=== PATIENT | female | born 1960 | race Caucasian/White ===

== ENCOUNTER → 2021-06-10 09:53 | Outpatient (BNVA) | payer MEDICARE, MEDICAID, SELFPAY | PROVIDERS: PCP Internal Medicine; Visit Provider Advanced Practice Midwife | DX: Z13.89 Encounter for screening for other disorder (principal) ==

== ENCOUNTER 2022-06-16 13:44 | Emergency (ER) | payer MEDICARE, MEDICAID, SELFPAY ==
--- NOTE | ~2022-06-16 | XR_ITS ---
EXAMINATION: XR TIBIA AND FIBULA, LEFT CLINICAL INFORMATION: Left leg pain. COMPARISON: None available. TECHNIQUE: AP and lateral views of the left tibia and fibula were obtained. FINDINGS: The proximal tibia and fibula are intact. The left knee is unremarkable. There is no joint effusion. The soft tissues are unremarkable. XR/XR tibia fibula LT 2V IMPRESSION: No abnormality in the proximal tibia and fibula. Please refer to the report from left ankle radiographs from today for more detailed findings.
--- NOTE | ~2022-06-16 | XR_ITS ---
CR X-RAY FOOT AND ANKLE LEFT CLINICAL HISTORY: Left foot and ankle pain status post trauma. TECHNIQUE: 3 views of the left ankle and 4 views of the left foot were obtained. COMPARISON: None. FINDINGS: There are acute, mildly displaced fractures of the medial and lateral malleoli. The tibiotalar joint space appears intact. The tarsal bones are normally aligned. The metatarsals and phalanges are intact. Moderate soft tissue swelling is seen. XR/XR foot LT 2V IMPRESSION: Acute, mildly displaced medial and lateral malleoli fractures with moderate soft tissue swelling.
--- NOTE | ~2022-06-16 | XR_ITS ---
CR X-RAY FOOT AND ANKLE LEFT CLINICAL HISTORY: Left foot and ankle pain status post trauma. TECHNIQUE: 3 views of the left ankle and 4 views of the left foot were obtained. COMPARISON: None. FINDINGS: There are acute, mildly displaced fractures of the medial and lateral malleoli. The tibiotalar joint space appears intact. The tarsal bones are normally aligned. The metatarsals and phalanges are intact. Moderate soft tissue swelling is seen. XR/XR ankle LT 2V IMPRESSION: Acute, mildly displaced medial and lateral malleoli fractures with moderate soft tissue swelling.
[2022-06-16 13:49] VITALS: BP 125/78; PULSE 96; O2SAT 96
[2022-06-16 13:51] VITALS: BP 106/58; PULSE 93; RESP 18; TEMP 36.8; O2SAT 98; BMI 30.2
--- NOTE | 2022-06-16 14:03 | ED.GENADULT ---
HPI - General Adult General Chief complaint: Extremity Injury, Lower Stated complaint: L foot pain per EMS Time Seen by Provider: 06/16/22 13:46 Source: patient Mode of arrival: ambulatory Limitations: no limitations History of Present Illness HPI narrative: 61-year-old female with a history of seizure disorder, hypertension, prior TBI who presents the ER with complaints of left foot and ankle pain after a slip and fall in the shower yesterday. Patient reports inversion injury of the left foot and ankle. Since then pain which is worsened with weight-bearing. No reports of head injury or loss of consciousness. Patient reports pain in the foot and ankle. No associated weakness, numbness or tingling. No AC therapy use. Related Data Home Medications Medication Instructions Recorded Confirmed albuterol sulfate 90 mcg/actuation 1 puff PO Q6H PRN wheezing 06/10/21 aerosol inhaler (ProAir HFA) fluoxetine 40 mg capsule 40 mg PO DAILY 06/10/21 hydrochlorothiazide 25 mg tablet 25 mg PO DAILY 06/10/21 levetiracetam 500 mg tablet 500 mg PO Q12H 06/10/21 lisinopril 5 mg tablet 5 mg PO DAILY 06/10/21 loratadine 10 mg tablet 10 mg PO DAILY 06/10/21 melatonin 3 mg tablet 3 mg PO BEDTIME 06/10/21 omeprazole 20 mg capsule,delayed 20 mg PO DAILY 06/10/21 release phenytoin sodium extended 100 mg 100 mg PO BEDTIME 06/10/21 capsule potassium chloride 10 mEq 10 meq PO DAILY 06/10/21 tablet,extended release simvastatin 20 mg tablet 20 mg PO BEDTIME 06/10/21 trazodone 50 mg tablet 50 mg PO BEDTIME 06/10/21 Previous Rx's Medication Instructions Recorded oxycodone 5 mg tablet 5 mg PO Q6H PRN pain #10 tabs 06/16/22 Allergies Allergy/AdvReac Type Severity Reaction Status Date / Time No Known Allergies Allergy Verified 06/10/21 10:06 Review of Systems Review of Systems: Yes all other systems are reviewed and are negative Constitutional: Constitutional: Reports no additional constitutional complaints, Denies body ache(s), Denies chills, Denies fever(s), Denies headache(s) and Denies weakness Eyes: Eyes: Reports no additional eye complaints and Denies change in vision ENT: Reports system reviewed and no additional complaints, except as documented, Denies dizziness, Denies headache(s), Denies nasal congestion, Denies nasal discharge and Denies neck pain Cardiovascular: Cardiovascular: Reports no additional cardiovascular complaints, Denies chest pain, Denies leg edema and Denies dyspnea Respiratory: Respiratory: Reports no additional respiratory complaints, Denies cough and Denies dyspnea Gastrointestinal: Gastrointestinal: Reports no additional gastrointestinal complaints, Denies abdominal pain, Denies diarrhea, Denies nausea and Denies vomiting Genitourinary: Genitourinary: Reports no additional female genitourinary complaints and Denies urinary incontinence Musculoskeletal: Musculoskeletal: Reports no additional musculoskeletal complaints, Denies back pain, Reports arthralgias, Reports joint swelling, Denies neck pain, Denies numbness and Denies tingling Integumentary/Breasts: Skin/Breast: Reports system reviewed and no additional complaints, except as docu and Denies rash Neurologic: Reports system reviewed and no additional complaints, except as documented, Denies dizziness, Denies headache(s), Denies numbness, Denies tingling and Denies weakness PMF Past Medical History Attestation statement: The following information was validated with the patient. Source: old records reviewed and nursing notes reviewed Medical History Seizure Stroke Surgical History History of cranial surgery Social History Social History Advance Directives: No Advance Directives Information Provided: Yes Physical Exam ED Vital Signs: Vital Signs - 24 hr 06/16/22 13:51 06/16/22 15:57 Temperature 98.3 F 97.8 F Pulse Rate 93 91 Respiratory Rate 18 16 Blood Pressure 106/58 L 103/53 L Pulse Oximetry 98 98 Oxygen Delivery Method Room Air Room Air BMI result Body Mass Index 30.2 Const General: cooperative, healthy appearing, comfortable and no acute distress Orientation/consciousness: patient oriented x3 Limitations: no limitations HENMT Head: Yes normal to inspection Ears: hearing grossly normal bilaterally Eyes General: appearance normal, both eyes and all related structures Pupils: Equal, round and reactive pupils present Neck Neck: Yes normal visual inspection Chest Chest palpation & inspection: normal inspection of the chest Resp Effort & Inspection: normal respiratory effort Auscultation: clear to auscultation bilaterally Cardio Rate: regular rate Rhythm: regular rhythm Peripheral pulses: Peripheral pulses 2+ throughout GI Inspection: Yes normal to inspection Skin General skin exam: no rashes or lesions noted Neuro General: patient oriented x3 and moves all extremities Cranial nerves: Yes Equal, round and reactive pupils present Cognition (Neuro): normal cognition Extrem Other: There is some moderate ecchymosis over the left foot and ankle diffusely. There is tenderness over the medial and lateral ankle. No tenderness over the foot on exam. Patient is able to flex and extend the foot with no difficulty no ligamental laxity. Negative King test. Normal dorsalis pedis and posterior tibial pulses. Sensation is normal. No tenderness over the distal lower leg or knee. Course Course Course Narrative: X-ray of the left ankle shows acute mildly displaced fractures of the medial and lateral malleoli. Patient was taken back for dish in all images of the proximal tibia and fibula which are normal. I discussed the case with orthopedics who recommended splinting the patient having them follow up with the orthopedic office next week with strict nonweightbearing. I spoke to the patient who does have a traumatic brain injury. She is here with her caregiver who provides 24 hour care. I did discuss the injury with both the patient and the caregiver. We discussed splint care, nonweightbearing status and follow up next week with orthopedic. They both feel that they can manage at home the patient does not need any additional resources. Reviewed worrisome signs and symptoms of when to return to the emergency room. Comfortable plan for discharge home. Medications Administered Discontinued Medications Generic Name Dose Route Start Last Admin Trade Name Mariann PRN Reason Stop Dose Admin Oxycodone HCl 5 mg 06/16/22 14:53 06/16/22 14:57 Oxycodone Hcl Immed Release 5 Mg Tablet PO 06/16/22 14:54 5 mg ONCE ONE Administration Procedures Orthopedic Splinting/Casting Injury #1: Side: left Lower Extremity Injury Location: ankle Lower Extremity Immobilizer: posterior splint and stirrup splint Other Orthopedic Equipment: crutches Medical Decision Making Medical Decision Making MDM Narrative: 61-year-old female here with left ankle and foot pain after mechanical fall which occurred yesterday. Will check x-rays Differential Diagnosis Differential Diagnoses: The differential diagnosis associated with the presentation includes Fracture, contusion, sprain Consult Healthcare Provider Management of the patient was discussed with: [employer] I spoke to Orthopedics Stephany MARI in regards to distal tib/fibula fracture seen on x-ray. She recommended placing the patient in a splint and having the patient follow-up with them in the office next week Lab Data MDM Lab Attestation statement: I reviewed the patient's lab results. Independent Interpretation I performed an independent interpretation of an: Plain X-Ray Interpretation: I independently reviewed the x-ray and agree with radiologist's report Radiology Impression Discussion of test interpretation with radiology: I have reviewed the radiologist's reading. Radiologist Impression: [address] [address] XRay Report Signed Patient: Seda Deluca MR#: [id number] : 1960 Acct:[id number] Age/Sex: 61 / F ADM Date: 06/16/22 Loc: .ED Attending Dr: Ordering Physician: Monique Faria NP Date of Service: 06/16/22 Procedure(s): XR ankle LT 2V Accession Number(s): [id number] cc: Monique Faria NP~ CR X-RAY FOOT AND ANKLE LEFT CLINICAL HISTORY: Left foot and ankle pain status post trauma. TECHNIQUE: 3 views of the left ankle and 4 views of the left foot were obtained. COMPARISON: None. FINDINGS: There are acute, mildly displaced fractures of the medial and lateral malleoli. The tibiotalar joint space appears intact. The tarsal bones are normally aligned. The metatarsals and phalanges are intact. Moderate soft tissue swelling is seen. XR/XR ankle LT 2V IMPRESSION: Acute, mildly displaced medial and lateral malleoli fractures with moderate soft tissue swelling. ? Discharge Plan Discharge Clinical Impression: Ankle fracture Patient Disposition: Home, Self-Care Instructions: Ankle Fracture (DC), Crutch Instructions (ED), Splint Care (ED) Additional Instructions: You have 2 fractures in your ankle. You must wear the splint at all times. It cannot get wet. You cannot put weight on the left foot. You must use the crutches if moving around her house. Elevate the leg as much as possible to decrease swelling Take the pain medication as prescribed Return for increased pain in the extremity, cool or pale foot Call Orthopedics on Sunday to schedule a follow-up appointment Prescriptions: New oxycodone 5 mg tablet 5 mg PO Q6H PRN (Reason: pain) Qty: 10 0RF Rx Instructions: Partial Fill upon patient request. No Action potassium chloride 10 mEq tablet extended release 10 meq PO DAILY trazodone 50 mg tablet 50 mg PO BEDTIME fluoxetine 40 mg capsule 40 mg PO DAILY lisinopril 5 mg tablet 5 mg PO DAILY levetiracetam 500 mg tablet 500 mg PO Q12H albuterol sulfate [ProAir HFA] 90 mcg/actuation HFA aerosol inhaler 1 puff PO Q6H PRN (Reason: wheezing) simvastatin 20 mg tablet 20 mg PO BEDTIME omeprazole 20 mg capsule,delayed release(DR/EC) 20 mg PO DAILY loratadine 10 mg tablet 10 mg PO DAILY hydrochlorothiazide 25 mg tablet 25 mg PO DAILY melatonin 3 mg tablet 3 mg PO BEDTIME phenytoin sodium extended 100 mg capsule 100 mg PO BEDTIME Referrals: [facility] [place] [Provider Group] - 1 week
--- NOTE | 2022-06-16 14:38 | PC.NURSE ---
Patient's caregiver Kell at bedside.
[2022-06-16] MEDS: oxyCODONE HCl Immed Release 5 MG TABLET PO (14:57)
[2022-06-16 15:57] VITALS: BP 103/53; PULSE 91; RESP 16; TEMP 36.6; O2SAT 98
== END 2022-06-16 19:09 | disposition home or self-care (01) ==
PROVIDERS: Emergency Provider Student in an Organized Health Care Education/Training Program; PCP Internal Medicine
DX: S82.892A Other fracture of left lower leg, initial encounter for closed fracture (principal); M79.605 Pain in left leg; W18.2XXA Fall in (into) shower or empty bathtub, initial encounter; Y93.E1 Activity, personal bathing and showering; Y92.002 Bathroom of unspecified non-institutional (private) residence as the place of occurrence of the external cause; Y99.9 Unspecified external cause status; Z79.899 Other long term (current) drug therapy
CPT/HCPCS: 29515; 73590; 73600; 73620; 99283; 99284

== ENCOUNTER 2022-06-23 07:06 | Outpatient (REF) | payer MEDICARE, MEDICAID, SELFPAY ==
--- NOTE | ~2022-06-23 | XR_ITS ---
EXAMINATION: XR ANKLE, LEFT CLINICAL INFORMATION: Pain COMPARISON: Left ankle radiograph from 06/16/2022 TECHNIQUE: AP, lateral, and mortise views of the left ankle. FINDINGS: Mildly displaced fracture involving the distal fibula at the level of the ankle mortise. Mildly displaced fracture of the medial malleolus at the level of the ankle mortise. Pes planus. Enthesopathy at the Achilles tendon insertion site. Joint spaces and alignment are otherwise maintained. Soft tissue swelling about the ankle. XR/XR ankle LT min 3V IMPRESSION: 1. Mildly displaced fracture involving the distal fibula at the level of the ankle mortise. 2. Mildly displaced fracture of the medial malleolus at the level of the ankle mortise. 3. Soft tissue swelling about the ankle.
== END 2022-06-23 07:07 ==
LOC: HO.HOSX 07:06
PROVIDERS: Visit Provider Physician Assistant
DX: S82.62XA Displaced fracture of lateral malleolus of left fibula, initial encounter for closed fracture (principal); S82.52XA Displaced fracture of medial malleolus of left tibia, initial encounter for closed fracture
CPT/HCPCS: 73610; 99202

== ENCOUNTER 2022-06-27 08:19 | Day surgery (SDC) | payer MEDICARE, MEDICAID, SELFPAY ==
--- NOTE | ~2022-06-27 | FL_ITS ---
EXAMINATION: XR FLUOROSCOPY WITH IMAGES CLINICAL INFORMATION: Orthopedic reduction bimalleolar fractures. COMPARISON: Radiographs left ankle 06/23/2022 TECHNIQUE: Fluoroscopy Supervised By: Dr. Jimmy Arzate. Fluoroscopy Time: 0.3 minutes. Cumulative Dose: 0.771 mGy. DAP: 0.0133 Gycm2. Images: 3. FINDINGS: There has been open reduction and internal fixation of the bimalleolar fractures. Orthopedic hardware appears intact. Fracture fragments are in near-anatomic alignment. Ankle mortise is symmetric. No dislocation. FL/FL guidance in OR IMPRESSION: Status post open reduction and internal fixation left ankle fractures.
[2022-06-27 08:51] VITALS: BP 107/62; PULSE 92; RESP 20; TEMP 36.8; O2SAT 96; BMI 27.4
--- NOTE | 2022-06-27 09:14 | PC.NURSE ---
Addendum entered by Dequan Torre RN 06/27/22 10:50: Mehnaz Moore,echocardiography technologist spoke with orthopedic office regarding patients need for transportation. Office was unaware of request. per Mehnaz, patient's ADMINISTRATIVE DIRECTOR notified and is working on arranging transportation home post op. Original Note: pt unable to walk secomdary to pain punch box tender sts need ambulance home director aware
[2022-06-27] MEDS: Lactated Ringers 1,000 ML 50 ML IVCONT (09:31)
--- NOTE | 2022-06-27 09:44 | P.CONAN_ITS ---
HPI - Anesthesia Eval Consult details Narrative: 61 F for left ankle ORIF Denies chest pain or any other cardiac history . h/o seizures post TBI , as per patient last seizure many years ago . TBI 15 years ago , weakness on right side . Current smoker . Will give a duo-neb treatment pre-op [facility] Active Problems Active Problems: All Active Problems (Updated 06/27/22 @ 09:34 by Ruba Wahl RN) Medial malleolar fracture (Acute) Lateral malleolar fracture (Acute) Past Medical History Medical History (Updated 06/27/22 @ 09:34 by Ruba Wahl RN) GERD (gastroesophageal reflux disease) HTN (hypertension) Seizure Stroke Functional capacity: uses cane/walker Family History Family history of problems with anesthesia: No Surgical History Surgical History (Updated 06/27/22 @ 10:47 by Ruba Wahl RN) History of cranial surgery Hx of tonsillectomy Hx of tracheostomy History of Problems with Anesthesia: No Social History Social History (Updated 06/23/22 @ 11:17 by Leonides Staley) Alcohol intake: never Patient Tobacco Use Status: Current someday Tobacco user Current occupational status: retired [employer] Allergies Allergy/AdvReac Type Severity Reaction Status Date / Time No Known Allergies Allergy Verified 06/23/22 11:16 Active Medications: Current Medications Lactated Ringer's (Lr) 1,000 mls @ 50 mls/hr IVCONT .Q20H RUSSELL Last Admin: 06/27/22 09:31 Dose: 50 mls/hr Home Medications Medication Instructions Recorded Confirmed Last Taken Type albuterol sulfate 90 mcg/actuation 1 puff PO Q6H PRN wheezing 06/10/21 Unknown History aerosol inhaler (ProAir HFA) fluoxetine 40 mg capsule 40 mg PO DAILY 06/10/21 06/27/22 History hydrochlorothiazide 25 mg tablet 25 mg PO DAILY 06/10/21 06/27/22 History levetiracetam 500 mg tablet 500 mg PO Q12H 06/10/21 06/27/22 History lisinopril 5 mg tablet 5 mg PO DAILY 06/10/21 Unknown History loratadine 10 mg tablet 10 mg PO DAILY 06/10/21 06/27/22 History melatonin 3 mg tablet 3 mg PO BEDTIME 06/10/21 Unknown History omeprazole 20 mg capsule,delayed 20 mg PO DAILY 06/10/21 06/27/22 History release phenytoin sodium extended 100 mg 100 mg PO BEDTIME 06/10/21 06/27/22 History capsule potassium chloride 10 mEq 10 meq PO DAILY 06/10/21 06/27/22 History tablet,extended release simvastatin 20 mg tablet 20 mg PO BEDTIME 06/10/21 Unknown History trazodone 50 mg tablet 50 mg PO BEDTIME 06/10/21 Unknown History Exam Exam Date and Time: June 27, 2022 0944 Height,Weight and Vital Signs: Height 5 ft 3 in Weight 70.307 kg Last Vital Signs Temp 98.3 F 06/27/22 08:51 Pulse 92 06/27/22 08:51 Resp 20 06/27/22 08:51 BP 107/62 06/27/22 08:51 Pulse Ox 96 06/27/22 08:51 O2 Del Method Room Air 06/27/22 08:51 Airway Mallampati Class: III Neck ROM: Full Partial: Upper and Lower Loose/Missing/Broken Teeth: Yes Assessment and Plan Assessment Anesthesia Assessment: Anesthesia Plan Discussed and Chart Reviewed Final Anesthetic Review Family History of Problems with Anesthesia: No History of Problems with Anesthesia: No NPO: Yes ASA Class: III (urgent) Final Preanesthetic Review: Meds/Allgs Chart Reviewed, Consent Obtained/Reviewed and Anes Risks/Benef Reviewed Patient Risk: Intermediate Procedure Risk: Intermediate Assessment/Block/Sedation in SS: Assess/Block/Sedation-SS Anesthetic Plan Anesthetic Plan: GA, Regional Block and Agree w/ Assess. and Plan Disposition: Standard PACU
--- NOTE | 2022-06-27 12:51 | MHC.SHP ---
Pre-Procedural Eval Section A Date of Service: 06/27/22 The patient is an INPATIENT: No Changes since office visit: No Cold of Flu in the past 2 weeks, No New Medical Problems, No Changes in Medication and No Patient answered all questions The History & Physical has been completed within 30 days and I have reviewed it.: Yes Section B Chief Complaint: Displaced bimalleolar fracture of right lower leg, Allergies: Allergies Allergy/AdvReac Type Severity Reaction Status Date / Time No Known Allergies Allergy Verified 06/23/22 11:16 Plan I have reviewed the history and physical and performed a pertinent physical examination on my patient. No changes have occurred unless specified. Time Spent With Patient Time: Total time managing care of this patient today ____ minutes.
[2022-06-27 14:57] VITALS: BP 139/77; PULSE 93; RESP 18; TEMP 36.7; O2SAT 93
[2022-06-27 15:02] VITALS: BP 143/60; PULSE 96; RESP 15; O2SAT 93
[2022-06-27 15:07] VITALS: BP 138/58; PULSE 92; RESP 15; O2SAT 93
[2022-06-27 15:12] VITALS: BP 145/66; PULSE 88; RESP 15; O2SAT 95
--- NOTE | 2022-06-27 15:24 | P.BOP_ITS ---
Brief Operative Note Date of Service: 06/27/22 Pre-op diagnosis: Left ankle patrick fx Procedure: 1) ORIF lateral mal 2) ORIF medial mal 3) ORIF syndesmosis Implants: Lincoln lateral plate Lincoln medial screws Arthrex syndesmosis tightrope Surgeon: Jimmy Arzate MD Anesthesia: GETA and regional Was an Oncology Registrar used for this Procedure?: No Estimated blood loss (mL): 5 Tourniquet time (min): 70 IV fluids (mL): 800 Pathology: none sent Condition: stable Disposition: PACU
[2022-06-27 15:30] VITALS: BP 136/98; PULSE 92; RESP 18; TEMP 36.7; O2SAT 96
--- NOTE | 2022-06-28 14:46 | W.PM.OPN ---
Operative Note Operative Note Date of Service: 06/28/22 Narrative: Date of Service: 06/27/22 Pre-op diagnosis: Left ankle patrick fx Procedure: 1) ORIF lateral mal 2) ORIF medial mal 3) ORIF syndesmosis Implants: [place] lateral plate [place] medial screws Arthrex syndesmosis tightrope Surgeon:Jimmy Arzate MD Anesthesia: GETA and regional Was an Drive Thru Order Taker used for this Procedure?: No Estimated blood loss (mL): 5 Tourniquet time (min): 70 IV fluids (mL): 800 Pathology: none sent Condition: stable Disposition: PACU Procedure in detail: Patient was brought to the operating room and placed supine on the operative table. All bony prominences were well padded and a time-out was called to identify proper site proper procedure proper surgeon. IV antibiotics per weight were administered. I began by exsanguinating limb is slightly tourniquet to 300 mm Hg. I then made a standard posterolateral incision over the fibula. Full-thickness flaps were taken down to the fibular shaft and distal fibula. The fracture was identified and cleaned with a combination of curette, rongeur and irrigation. A lobster claw was used to provisionally reduce the fracture and a 6 hole distal fibular locking plate was applied using standard AO technique. There was an ATFL avulsion which I repaired using a fiber wire and tield this to the plate. Biplanar fluoroscopy was used to confirm hardware position and fracture reduction. Once I was satisfied that both of these were acceptable I irrigated copiously and turned my attention to the medial side. The transverse medial malleolar fracture was identified after skin incision. Full-thickness skin flaps were developed and, With a sharp tenaculum, the fracture was reduced. 2 threaded K-wires were then placed from distal to proximal and perpendicular to the fracture. Biplanar fluoroscopy was used to confirm positioning and then they were overdrilled and 2 36 mm 4.0 partially-threaded cannulated cancellous screws were placed across the fracture. I was satisfied with the position and the fracture reduction based on biplanar fluoroscopy. This syndesmosis was tested using external rotation test and was found to be unstable. Therefore a syndesmosis tightrope (Arthrex) was placed by drilling through the lateral plate at the level of the syndesmosis at a slight posterior to anterior angle. The tightrope was inserted and the button flipped on the medial side. Te syndesmosis was tightened. Biplanar fluoro was used to confirm hardware position and fracture alignement. All instrumentation was removed and copious irrigation was performed. Absorbable suture and donnie were used for closure and the patient was placed into sterile dressings and a well-padded posterior splint. Tourniquet was let down and the patient was extubated brought to recovery room in stable condition there were no known complications.
== END 2022-06-27 15:39 | disposition home or self-care (01) ==
PROVIDERS: PCP Internal Medicine; Visit Provider Orthopaedic Surgery
PROC: (CPT 27814; principal; 2022-06-27 11:50)
DX: S82.842A Displaced bimalleolar fracture of left lower leg, initial encounter for closed fracture (principal); W18.2XXA Fall in (into) shower or empty bathtub, initial encounter; Y93.E1 Activity, personal bathing and showering; Y92.002 Bathroom of unspecified non-institutional (private) residence as the place of occurrence of the external cause; Y99.8 Other external cause status; I10 Essential (primary) hypertension; Z86.73 Personal history of transient ischemic attack (TIA), and cerebral infarction without residual deficits; Z86.69 Personal history of other diseases of the nervous system and sense organs; Z79.899 Other long term (current) drug therapy; Z98.890 Other specified postprocedural states; Z87.891 Personal history of nicotine dependence
CPT/HCPCS: 27814; 27829; C1713; J0131; J0690; J1100; J1170; J2250; J2370; J2405; J2795

== ENCOUNTER 2022-07-07 12:34 | Outpatient (REF) | payer MEDICARE, MEDICAID, SELFPAY ==
--- NOTE | ~2022-07-07 | XR_ITS ---
EXAMINATION: XR ANKLE, LEFT CLINICAL INFORMATION: Pain COMPARISON: Ankle radiographs 06/23/2022 TECHNIQUE: AP, lateral, and mortise views of the left ankle. FINDINGS: Interval plate and screw fixation of the distal fibular fracture with 2 surgical screws fixating the medial malleolar fracture with medial malleolus and about. Soft tissue surgical donnie. Mild soft tissue swelling decreased from prior. There is decreased conspicuity of the lateral malleolus fracture, not well seen. No marlin bridging bony callus formation along the medial malleolus fracture. Ankle mortise is congruent. XR/XR ankle LT min 3V IMPRESSION: ORIF of the bilateral malleoli fractures. There is decreased conspicuity of the lateral malleolus fracture. Improved soft tissue swelling.
== END 2022-07-07 12:35 | disposition home or self-care (01) ==
LOC: HO.HOSX 12:34
PROVIDERS: PCP Internal Medicine; Visit Provider Physician Assistant
DX: S82.52XD Displaced fracture of medial malleolus of left tibia, subsequent encounter for closed fracture with routine healing (principal); S82.62XD Displaced fracture of lateral malleolus of left fibula, subsequent encounter for closed fracture with routine healing
CPT/HCPCS: 73610; 99212

== ENCOUNTER 2022-07-24 10:39 | Outpatient (REF) | payer MEDICARE, MEDICAID, SELFPAY ==
--- NOTE | ~2022-07-24 | XR_ITS ---
EXAMINATION: XR ANKLE, LEFT CLINICAL INFORMATION: Pain left ankle COMPARISON: None available. TECHNIQUE: AP, lateral, and mortise views of the left ankle. FINDINGS: There is a lateral fibular plate and donnie along the skin line stabilizing transverse fracture distal fibula. The medial malleolar fracture has been stabilized with 2 screws and a small disc with surgical donnie along the skin line. These are unchanged to previous study 07/07/2022. The ankle mortise and subtalar joints are normal. XR/XR ankle LT min 3V IMPRESSION: Stabilized medial malleolar and lateral distal fibular fractures with hardware as described above. No change from 07/07/2022. T the distal fibular fracture is almost healed. Medial malleolar fracture line is still visualized.
== END 2022-07-24 10:40 | disposition home or self-care (01) ==
LOC: HO.HOSX 10:39
PROVIDERS: Visit Provider Physician Assistant
DX: S82.62XD Displaced fracture of lateral malleolus of left fibula, subsequent encounter for closed fracture with routine healing (principal); S82.52XD Displaced fracture of medial malleolus of left tibia, subsequent encounter for closed fracture with routine healing
CPT/HCPCS: 29405; 73610; 99212

== ENCOUNTER 2022-08-07 11:48 | Outpatient (REF) | payer MEDICARE, MEDICAID, SELFPAY | END 2022-08-07 11:49 | disposition home or self-care (01) | LOC: HO.HOSX 11:48 | PROVIDERS: Visit Provider Physician Assistant | DX: Z13.89 Encounter for screening for other disorder (principal) ==

== ENCOUNTER 2022-08-11 07:20 | Outpatient (REF) | payer MEDICARE, MEDICAID, SELFPAY ==
--- NOTE | ~2022-08-11 | XR_ITS ---
EXAMINATION: XR ANKLE, LEFT CLINICAL INFORMATION: Left ankle and foot pain. COMPARISON: Radiographs dated 07/24/2022. TECHNIQUE: AP, lateral, and mortise views of the left ankle. FINDINGS: Bony alignment and mineralization are normal. An orthopedic plate and screws are again applied to the distal left femur. There are orthopedic screws again applied to the medial malleolus. There has been a prior tightrope tibiofibular syndesmotic stabilization. No hardware failure or loosening is seen. Fracture lines are now poorly visualized. No dislocation or significant joint effusion is seen. Boehler's angle is normal. There is no calcaneal spur. No focal soft tissue swelling, gas or foreign body is seen. XR/XR ankle LT min 3V IMPRESSION: There are stable postoperative changes of the left ankle. Bimalleolar fractures are now poorly visualized, consistent with interim healing. No hardware failure or loosening is seen.
== END 2022-08-11 07:21 | disposition home or self-care (01) ==
LOC: HO.HOSX 07:20
PROVIDERS: Visit Provider Physician Assistant
DX: S82.62XD Displaced fracture of lateral malleolus of left fibula, subsequent encounter for closed fracture with routine healing (principal); X58.XXXD Exposure to other specified factors, subsequent encounter; Z79.891 Long term (current) use of opiate analgesic; Z98.890 Other specified postprocedural states; Z79.899 Other long term (current) drug therapy
CPT/HCPCS: 73610; 99212

== ENCOUNTER 2022-09-25 10:27 | Outpatient (REF) | payer MEDICARE, MEDICAID, SELFPAY | END 2022-09-25 10:28 | disposition home or self-care (01) | LOC: HO.HOSX 10:27 | PROVIDERS: Visit Provider Physician Assistant | DX: Z13.89 Encounter for screening for other disorder (principal) ==

== ENCOUNTER 2022-10-18 11:44 | Outpatient (REF) | payer MEDICARE, MEDICAID, SELFPAY ==
--- NOTE | ~2022-10-18 | XR_ITS ---
EXAMINATION: XR ANKLE, LEFT CLINICAL INFORMATION: Pain in left ankle COMPARISON: 08/01/2022, 07/07/2022 TECHNIQUE: AP, lateral, and mortise views of the left ankle. FINDINGS: There is healed fracture of lateral and medial malleoli with hardware in place. Ankle mortise is maintained. The position of hardware is stable. XR/XR ankle LT min 3V IMPRESSION: Healed fractures of the medial and lateral malleoli with hardware in place.
== END 2022-10-18 11:45 | disposition home or self-care (01) ==
LOC: HO.HOSX 11:44
PROVIDERS: Visit Provider Physician Assistant
DX: S82.62XD Displaced fracture of lateral malleolus of left fibula, subsequent encounter for closed fracture with routine healing (principal); Z98.890 Other specified postprocedural states
CPT/HCPCS: 73610

== ENCOUNTER 2022-10-18 13:41 | Outpatient (AMB) | payer MEDICARE, MEDICAID, SELFPAY ==
--- NOTE | 2022-10-18 13:48 | MHC.OFFVIS ---
Intake Vital Signs 10/18/22 14:16 Height 4 ft 10 in Weight 158 lb BMI 33.0 Intake Visit Reasons: OV - LT ankle ORIF, 06/27/22 NE with xray Intake Note: Seda is a 62 year old female who presents today with her caregiver Kell for a follow up of her left ankle s/p Left Ankle ORIF 06/27/2022. Patient reports that she is doing well with no pain, she has been ambulating well. She wears the boot at all times other than at rest. Accompanied by: Unknown Allergies No Known Allergies Allergy (Verified 08/11/22 08:08) HPI OV - LT ankle ORIF, 06/27/22 NE with xray HPI Details 62-year-old female who returns to the office today with her caregiver for a follow-up of left ankle ORIF, 06/27/[address] Arzate. She states she has no pain and is doing well overall. She is ambulating well on her feet and she is wearing the boot at all times except when resting. She continues to work on physical therapy with benefits. She has no concerns today. [facility] Medical History GERD (gastroesophageal reflux disease) HTN (hypertension) Seizure Stroke Surgical History History of cranial surgery Hx of tonsillectomy Hx of tracheostomy Social History Alcohol intake: never Patient Tobacco Use Status: Current someday Tobacco user Current occupational status: retired Review of Systems Const All systems reviewed & are unremarkable except as noted in HPI and below Physical Exam Vital Signs: BMI result Body Mass Index 33.0 Extrem Other: Left ankle normal to inspection, incision well healed. There is no skin breakdown, no erythema or swelling. She has full sensations and pulses are intact. Results Reviewed Results Reviewed: Xrays were obtained in the office today and personally reviewed by me of the left ankle show healing fracture with intact hardware Assessment & Plan Assessment & Plan (1) Status post open reduction with internal fixation (ORIF) of fracture of ankle: Code(s): Z98.890 - Other specified postprocedural states; Z87.81 - Personal history of (healed) traumatic fracture (2) Lateral malleolar fracture: Comment: left ankle mildly displaced Code(s): S82.63XA - Displaced fracture of lateral malleolus of unspecified fibula, initial encounter for closed fracture Plan She was transitioned to a lace-up ankle brace which she will use with any type of prolonged walking or activity. She will continue with her therapy home exercises program and if symptoms persist or worsens, patient will contact the office, otherwise follow-up as needed. Orders: Orders XR ankle LT min 3V 09/25/22 M25.572 - Pain in left ankle and joints of left foot XR ankle LT min 3V Today M25.572 - Pain in left ankle and joints of left foot Patient Instructions: Scribed for Alize Ford PA-C, by Arnulfo Foster medical physiologist, on 10/18/2022 at 1:45 PM EST. I, Alize Ford PA-C, have personally reviewed and agree with the information entered by the scribe. Coding Level of Care Code Global (17563) Diagnoses Status post open reduction with internal fixation (ORIF) of fracture of ankle Z98.890; Z87.81 Lateral malleolar fracture S82.63XA
[2022-10-18 14:16] VITALS: BMI 33.0
== END 2022-10-18 14:46 | disposition home or self-care (01) ==
PROVIDERS: PCP Internal Medicine; Visit Provider Physician Assistant
DX: S82.63XD Displaced fracture of lateral malleolus of unspecified fibula, subsequent encounter for closed fracture with routine healing (principal)
CPT/HCPCS: 99213